=== PATIENT | male | born 1955 | race Caucasian/White ===

== ENCOUNTER 2017-02-22 10:07 | Day surgery (SDC) | payer MEDICAID, OTHER ==
[~2017-02-22] VITALS: Ht 172.7 cm; Wt 64.9 kg
[2017-02-22] MEDS: dexameTHASONE 4 MG/ML 1ML VIAL (J1100) IV ONE ×2 (10:00→13:31)
[~2017-02-22 10:07] MED LIST: AMPICILLIN SOD/SULBACTAM SOD 3 GM in D5W MINI-BAG PLUS 100 ML IV ONE; IBUP200C10 PO; LR 1,000 ML IV ONE
[2017-02-22] MEDS ORDERED: MIDAZOLAM INJ 2 MG/2 ML VIAL (J2250) As Ordered ONE (12:21)
[2017-02-22] MEDS ORDERED: fentaNYL 100 MCG/2 ML INJECTION (J3010) As Ordered ONE ×3 (12:21→14:43)
[2017-02-22] MEDS ORDERED: LIDOCAINE 2% W/ EPINEPHRINE 1.7 ML DENTAL INJ As Ordered ONE (12:40)
[2017-02-22] MEDS ORDERED: OXYMETAZOLINE NASAL SPRAY (AFRIN) As Ordered ONE (13:11)
[2017-02-22] MEDS ORDERED: LIDOCAINE 2% INJ 100 MG/5 ML SDV (FOR ANES.) As Ordered ONE (13:35)
[2017-02-22] MEDS ORDERED: ONDANSETRON 4MG/2ML VIAL (J2405) As Ordered ONE (13:35)
[2017-02-22] MEDS ORDERED: ROCURONIUM BROMIDE 50 MG/5 ML VIAL/SYRINGE As Ordered ONE (13:35)
[2017-02-22] MEDS ORDERED: PROPOFOL 200 MG/20 ML VIAL As Ordered ONE (13:35)
[2017-02-22] MEDS ORDERED: fentaNYL 100 MCG/2 ML INJECTION (J3010) IV PRN (16:15)
[2017-02-22] MEDS ORDERED: ONDANSETRON 4MG/2ML VIAL (J2405) IV PRN (16:15)
[2017-02-22] MEDS ORDERED: LR 1,000 ML IV SCH (16:15)
[2017-02-22 17:00] VITALS: BP 170/80
--- NOTE | 2017-02-24 14:40 | RO ---
DATE OF PROCEDURE: 02/22/2017 PREOPERATIVE DIAGNOSES: Bilateral mandibular nidhi and grossly decayed and symptomatic teeth number 3, 4, 5, 6, 7, 8, 9, 10, 11, 12, 13, 14, 15, 18, 19, 20, 21, 22, 23, 24, 25, 26, 27, 28, 29, 30, and 31. POSTOPERATIVE DIAGNOSES: Bilateral mandibular nidhi and grossly decayed and symptomatic teeth number 3, 4, 5, 6, 7, 8, 9, 10, 11, 12, 13, 14, 15, 18, 19, 20, 21, 22, 23, 24, 25, 26, 27, 28, 29, 30, and 31. SURGEON: Tristin Jackson DMD, MD CLINICAL INFORMATION SYSTEMS DIRECTOR: None. ANESTHESIA: General endotracheal anesthesia via nasal ray. PROCEDURE PERFORMED: Mandibular nidhi removal on the left and on the right, as well as surgical extraction of the aforementioned teeth. SPECIMEN: Teeth for gross only. INDICATIONS FOR SURGERY: Ovi is a pleasant 61-year-old male who was referred to my office for evaluation for extraction of all of his teeth and removal of mandibular nidhi in preparation for mandibular and maxillary dentures. A complete history and physical examination was performed and is in the patient's chart and informed consent was explained in detail and is in the patient's chart. The options were given to the patient to have light IV conscious sedation in the office versus general anesthesia in the operating room. Due to the patient's severe dental anxiety and heavy cigarette smoking, the patient and I elected to have the procedure done in an operating room setting under general anesthesia. DESCRIPTION OF PROCEDURE: On February 22, 2017, the patient presented to preop holding area. He was met by the anesthesiologist and the surgeon. Any last minute questions were addressed. At that point, the history and physical and the consent were updated. At that point, the patient was then taken back to the operating room. He was laid supine on the operating room table. Ulnar nerve protectors were placed. Noninvasive cardiac monitors were applied. At that point, the patient underwent general anesthesia and was intubated with a nasal vito, which was then secured to the patient's head and forehead. At this point, the patient was prepped and draped in the usual sterile fashion. A time-out procedure was performed to identify the patient, the procedure and any other precautions. Preoperative antibiotics and steroids were administered preoperatively. A moist throat pack was then inserted in the patient's oropharynx followed by the administration of 12 carpules of 2% lidocaine with 1:100,000 epinephrine as local infiltrations and multiple blocks. At this point, routine forceps extraction of teeth number 4, 5, 6, 7, 8, 9, 10, 11, 13, 21, 22, 23, 24, 25, 26, 27, 28, 29, 30 was performed. All the sockets were curetted and irrigated. I was unable to luxate the following teeth due to the gross decay in the teeth and lack of purchase and that includes teeth number 3, 12, 14, 15, 18, 19, 20, and 31. Therefore a full-thickness flap was released in each of those indicated teeth areas. Buccal bone was removed. The teeth were then sectioned and delivered in their entirety and there sockets were then irrigated and curetted. At this point, once all the teeth that I had mentioned have been removed, the flaps were extended for the entire mandible and maxilla facially, and alveoloplasties were performed in each of the four quadrants using a football bur to remove any bony undercuts and any sharp bony areas in each of the four quadrants down to a smooth finish. At this point, once the four quadrants alveoloplasty was performed, attention was then given to the mandibular nidhi where a full-thickness lingual flap was raised to expose the tooth nidhi in the mandible, one on the left lung and one on the right. Once the nidhi were fully exposed, a football bur was then used to remove the nidhi in their entirety down to a smooth finish with the rest of the lingual mandibular contour. Copious irrigation in the flaps were performed. Copious suction. At this point, the sockets were once again all irrigated and suctioned and all the flaps in each quadrant were then closed with interrupted and continuous running #3-0 chromic sutures. Gauze hemostasis was easily achieved. The oral cavity was then irrigated and suctioned. The throat pack was removed, and the patient was then awakened from general anesthesia without any incident taken back to the postanesthesia care unit (PACU). COMPLICATIONS: None. Estimated blood loss about 100 mL. DRAINS: There were no drains placed.
== END 2017-02-22 17:15 | disposition home or self-care (01) ==
LOC: M SDC 10:07
PROVIDERS: ATTEND Dentist
DX: K02.9 Dental caries, unspecified (principal); M27.0 Developmental disorders of jaws; R01.1 Cardiac murmur, unspecified; J30.2 Other seasonal allergic rhinitis; Z72.0 Tobacco use
CPT/HCPCS: 88300; D7210; D7310; D9223